=== PATIENT | female | born 1945 | race Caucasian/White ===

== ENCOUNTER → 2023-01-25 | Outpatient (CLI) | payer MEDICARE, OTHER | LOC: LAB 11:01 → LAB SHORT 11:01 | DX: N76.0 Acute vaginitis (principal) | CPT/HCPCS: 87086 ==

== ENCOUNTER → 2023-01-30 | Outpatient (CLI) | payer MEDICARE, OTHER | END | disposition home or self-care (01) | LOC: LAB SHORT 13:58 → LAB 13:58 | DX: R35.0 Frequency of micturition (principal); R30.0 Dysuria | CPT/HCPCS: 87086; 87147 ==

== ENCOUNTER 2023-05-07 09:05 | Day surgery (SDC) | payer MEDICARE, OTHER ==
[~2023-05-07] VITALS: Ht 160 cm; Wt 78.0 kg
[2023-05-07] VITALS (17 sets, daily range): BP systolic 144–176; BP diastolic 80–110
[~2023-05-07 09:05] MED LIST: SINEMET 25-1001 EAC1 PO
--- NOTE | 2023-05-07 09:40 | NUR ---
PT TO DAY SURGERY FOR COLONOSCOPY, DAUGHTER IN LAW AT BEDSIDE WITH PT AND WILL BE PTS RIDE HOME. PLAN OF CARE DISCUSSED, QUESTIONS ANSWERED.
--- NOTE | 2023-05-07 10:44 | NUR ---
05/07/23 1044 Randal Mac HISTORY, CHART, MEDICATIONS AND ALLERGIES REVIEWED BEFORE START OF PROCEDURE. PATIENT CONFIRMS NPO STATUS AND AGREES WITH SCHEDULED PROCEDURE. 3-LEAD EKG REVIEWED WITH PHYSICIAN PRIOR TO START OF PROCEDURE. MONITOR INTACT WITH CONTINUOUS PULSE OXIMETRY,CAPNOGRAPHY, 3-LEAD EKG, INTERMITTENT BP. SUPPLEMENTAL O2 TO BE TITRATED THROUGHOUT PROCEDURE TO MAINTAIN O2 SATURATION ABOVE 90%. PATIENT DETERMINED TO BE ASA APPROPRIATE FOR PROPOFOL SEDATION PRIOR TO START OF PROCEDURE BY DR. LIPSCOMB.
--- NOTE | 2023-05-07 11:58 | NUR ---
PATIENT UP TO AMBULATE TO BR, STEADY ON FEET. REPORTS MILD DIZZINESS WITH MOVEMENT. INSTRUCTED TO USE CAUTION WHILE AMBULATING AND GOING FROM A LYING/SITTING POSITION TO STANDING. Discharge instructions reviewed with patient. Patient verbalizes understanding. Copy given to patient to take home. Discharged via wheelchair to private car for ride home.
== END 2023-05-07 23:02 | disposition home or self-care (01) ==
LOC: ORSCMMR 09:05 → ORD 10:00 → ORSCMMR 10:00
PROVIDERS: Internal Medicine Gastroenterology
PROC: 0DBH8ZX Excision of Cecum, Via Natural or Artificial Opening Endoscopic, Diagnostic (ICD-10-PCS; principal; 2023-05-07 10:00)
DX: Z12.11 Encounter for screening for malignant neoplasm of colon (principal); Z86.010 Personal history of colon polyps; Z80.0 Family history of malignant neoplasm of digestive organs; D12.0 Benign neoplasm of cecum; K57.30 Diverticulosis of large intestine without perforation or abscess without bleeding; G20.A1 Parkinson's disease without dyskinesia, without mention of fluctuations; Z79.899 Other long term (current) drug therapy
CPT/HCPCS: 88305; J2704; J7120

== ENCOUNTER 2024-03-16 11:04 | Emergency (ER) | payer MEDICARE, OTHER ==
[~2024-03-16] VITALS: Ht 162.6 cm; Wt 70.8 kg
[2024-03-16 12:10] LABS: BASOPHILS ABSOLUTE AUTO 0.03 K/mm3 (0.00-0.23); BASOPHILS PERCENT AUTO 1 % (0-2); EOSINOPHILS ABSOLUTE AUTO 0.07 K/mm3 (0.00-0.68); EOSINOPHILS PERCENT AUTO 2 % (0-6); Hematocrit 39.4 % (33.0-51.0); IMMATURE GRAN ABSOLUTE AUTO 0.01 K/mm3 (0.00-0.10); IMMATURE GRAN PERCENT AUTO 0 % (0-1); LYMPHOCYTES ABSOLUTE AUTO 0.83 K/mm3 (0.84-5.20); LYMPHOCYTES PERCENT AUTO 20 % (21-46); MONOCYTES ABSOLUTE AUTO 0.46 K/mm3 (0.16-1.47); MONOCYTES PERCENT AUTO 11 % (4-13); Mean Corpuscular Volume 91 fL (80-100); Mean Platelet Volume 11.1 fL (9.1-12.4); NEUTROPHILS ABSOLUTE AUTO 2.82 K/mm3 (1.96-9.15); NEUTROPHILS PERCENT AUTO 67 % (41-73); Platelet Count 167 K/mm3 (150-400); RDW Coefficient Variation 13.1 % (11.7-14.2); RDW Standard Deviation 44.2 fL (35.1-46.3); Red Blood Cell Count 4.33 M/mm3 (3.80-5.20); White Blood Cell Count 4.22 K/mm3 (4.00-11.30)
[2024-03-16] MEDS ORDERED: Ketorolac Tromethamine 15mg Vial IV ONE (12:25)
[2024-03-16 12:28] LABS: Bun/Creatinine Ratio 24.3 (12.0-20.0); Calcium, Blood 8.9 mg/dL (8.5-10.1); Creatinine, Blood 0.7 mg/dL (0.40-1.00)
[2024-03-16 13:30] VITALS: BP 141/77
== END 2024-03-16 13:45 | disposition home or self-care (01) ==
LOC: ER 11:04
PROVIDERS: Emergency Medicine
DX: S09.90XA Unspecified injury of head, initial encounter (principal); H53.8 Other visual disturbances; W20.8XXA Other cause of strike by thrown, projected or falling object, initial encounter; G20.A1 Parkinson's disease without dyskinesia, without mention of fluctuations; Z88.0 Allergy status to penicillin; Z88.5 Allergy status to narcotic agent; Z79.899 Other long term (current) drug therapy
CPT/HCPCS: 70450; 80048; 85025; 96374; 99284-25; J1885

== ENCOUNTER 2024-05-06 10:35 | Inpatient (IN) | payer MEDICARE, OTHER ==
[~2024-05-06] VITALS: Ht 162.6 cm; Wt 51.1 kg
[2024-05-06 11:31] LABS: BASOPHILS ABSOLUTE AUTO 0.03 K/mm3 (0.00-0.23); BASOPHILS PERCENT AUTO 1 % (0-2); EOSINOPHILS PERCENT AUTO 2 % (0-6); Hematocrit 41.5 % (33.0-51.0); Hemoglobin 14.2 g/dL (11.5-16.0); IMMATURE GRAN ABSOLUTE AUTO 0.02 K/mm3 (0.00-0.10); IMMATURE GRAN PERCENT AUTO 0 % (0-1); LYMPHOCYTES PERCENT AUTO 12 % (21-46); MONOCYTES ABSOLUTE AUTO 0.68 K/mm3 (0.16-1.47); MONOCYTES PERCENT AUTO 14 % (4-13); Mean Corpuscular HGB Conc 34.2 g/dL (31.5-36.5); Mean Corpuscular Volume 91 fL (80-100); Mean Platelet Volume 11.8 fL (9.1-12.4); NEUTROPHILS ABSOLUTE AUTO 3.52 K/mm3 (1.96-9.15); NEUTROPHILS PERCENT AUTO 71 % (41-73); Platelet Count 191 K/mm3 (150-400); RDW Coefficient Variation 12.4 % (11.7-14.2); RDW Standard Deviation 41.2 fL (35.1-46.3); Red Blood Cell Count 4.58 M/mm3 (3.80-5.20); White Blood Cell Count 4.95 K/mm3 (4.00-11.30)
[2024-05-06 11:55] LABS: Albumin, Blood 3.6 g/dL (3.4-5.0); Albumin/Globulin Ratio 1.1 (0.8-1.8); Bilirubin, Total 0.5 mg/dL (0.1-1.0); Bun/Creatinine Ratio 23.3 (12.0-20.0); Calcium, Blood 9.4 mg/dL (8.5-10.1); Creatinine, Blood 0.69 mg/dL (0.40-1.00); Globulin, Blood 3.4 g/dL (2.2-4.0); Magnesium, Blood 2.2 mg/dL (1.6-2.4)
[2024-05-06 15:09] LABS: Source, Urine Clean Catch
[2024-05-06 15:13] LABS: Appearance, Urine Clear (Clear); Bilirubin, Urine Neg (Neg); Blood, Urine 1+ (Neg); Color, Urine Amber (P-Yellow); Glucose Qualitative, Urine Neg (Neg); Ketones, Urine 2+ (Neg); Leukocyte Esterase, Urine 1+ (Neg); Nitrite, Urine Pos (Neg); Protein, Urine 2+ (Neg); Urobilinogen, Urine 1+ (Normal)
[2024-05-06 15:32] LABS: Mucus Heavy (0-Heavy)
[2024-05-06 15:33] LABS: Bacteria Mod /hpf; Squamous Epithelial Cells Few /hpf (Few)
[2024-05-06] MEDS ORDERED: Cephalexin Monohydrate 500 MG Cap PO ONE (15:45)
[2024-05-06] MEDS ORDERED: CefTRIAXone Sodium 1,000 MG in NS 100 ML IV ONE (15:55)
[2024-05-06] MEDS ORDERED: FLU VACC TS2024-25(6MOS UP)/PF 45 MCG/0.5 ML SYRINGE IM SCH (16:20)
[2024-05-06] MEDS ORDERED: NS 1,000 ML IV SCH (16:20)
[2024-05-06] MEDS ORDERED: Ondansetron 4 MG TAB PO PRN (16:20)
[2024-05-06] MEDS ORDERED: Melatonin 3 MG Tab PO PRN (16:20)
[2024-05-06] MEDS ORDERED: Acetaminophen 325 MG TABLET PO PRN (16:20)
[2024-05-06] MEDS ORDERED: Levodopa/Carbidopa 100/25 MG Tab *CR PO SCH (17:00)
--- NOTE | 2024-05-06 18:19 | NUR ---
PT ARRIVED AT 1810 VIA CART. PT IS AOX2 WITH CONFUSION AND IS RINCON. PT WAS ABLE TO REQUEST NEED FOR RESTROOM AND USED CAN WITH A ONE PERSON ASSIST INTO RESTROOM. PT SETTLED INTO BED AND ORIENTED TO CALL LIGHT AND BED ALARM IS IN PLACE. NO DISTRESS IS NOTED WILL CONTINUE TO MONITOR.
[2024-05-06 18:20] VITALS: BP 127/77
[2024-05-06] MEDS ORDERED: Sennosides 8.6 MG Tab PO SCH (21:00)
[2024-05-06] MEDS ORDERED: OLANZapine 10 MG Vial IM ONE (23:35)
--- NOTE | 2024-05-07 04:27 | NUR ---
SHIFT SUMMARY ADMITTED FOR UTI/AMS. FULL CODE. IV ANTIB RX ARE SCHEDULED. IV FLUIDS WERE INFUSING. PT BECAME SEVERELY AGITATED THE SHIFT PROGRESSED. SHE PULLED OUT HER IV, BECAME AGRESSIVE TOWARDS STAFF (ATTEMPTING BITING, KICKING, PULLING HAIR, HITTING), AND REFUSED TO BE REDIRECTED. SHE EXITED HER BED AND WAS INTENT ON SHUTTING HERSELF IN THE BATHROOM ALONE. I DID INFORM THE HOSPITALIST AND NEW ORDERS WERE ENTERED. SHE IS CONFUSED AND HALLUCINATING, YELLING OUT. ANXIETY MEDICATION GIVEN WITH LITTLE EFFECT. PALLIATIVE CARE IS CONSULTED. HX OF PARKINSONS. SHE IS SEVERELY KEWEENAW. ON RA. REGULAR DIET.
[2024-05-07 07:33] LABS: BASOPHILS ABSOLUTE AUTO 0.03 K/mm3 (0.00-0.23); BASOPHILS PERCENT AUTO 1 % (0-2); EOSINOPHILS ABSOLUTE AUTO 0.04 K/mm3 (0.00-0.68); EOSINOPHILS PERCENT AUTO 1 % (0-6); Hematocrit 41.8 % (33.0-51.0); Hemoglobin 14.5 g/dL (11.5-16.0); IMMATURE GRAN ABSOLUTE AUTO 0.06 K/mm3 (0.00-0.10); IMMATURE GRAN PERCENT AUTO 1 % (0-1); LYMPHOCYTES ABSOLUTE AUTO 0.69 K/mm3 (0.84-5.20); LYMPHOCYTES PERCENT AUTO 11 % (21-46); MONOCYTES ABSOLUTE AUTO 0.96 K/mm3 (0.16-1.47); MONOCYTES PERCENT AUTO 16 % (4-13); Mean Corpuscular HGB 30.9 pg (26.0-34.0); Mean Corpuscular HGB Conc 34.7 g/dL (31.5-36.5); Mean Corpuscular Volume 89 fL (80-100); NEUTROPHILS ABSOLUTE AUTO 4.31 K/mm3 (1.96-9.15); NEUTROPHILS PERCENT AUTO 71 % (41-73); Platelet Count 154 K/mm3 (150-400); RDW Coefficient Variation 12.3 % (11.7-14.2); RDW Standard Deviation 40.5 fL (35.1-46.3); White Blood Cell Count 6.09 K/mm3 (4.00-11.30)
[2024-05-07 07:47] VITALS: BP 178/110
[2024-05-07 08:26] LABS: Bun/Creatinine Ratio 23.4 (12.0-20.0); Creatinine, Blood 0.64 mg/dL (0.40-1.00); Potassium, Blood 3.7 mmol/L (3.5-5.5)
[2024-05-07] MEDS ORDERED: CefTRIAXone Sodium 1,000 MG in NS 100 ML IV SCH (09:00)
[2024-05-07] MEDS ORDERED: Enoxaparin 40 MG/0.4 ML SYR SC SCH (09:00)
[2024-05-07 09:27] VITALS: BP 107/93
[2024-05-07] MEDS ORDERED: CARBIDOPA-LEVO1 EA15 PO (13:47)
[2024-05-07] MEDS ORDERED: [UNRECOGNIZED DRUG - CODE] PO ×2 (13:49→15:47)
[2024-05-07] MEDS ORDERED: B-12500 MC2 PO (13:51)
[2024-05-07] MEDS ORDERED: VITAMIN D31000 UNI1 PO (13:53)
[2024-05-07] MEDS ORDERED: QUEtiapine Fumarate 25 MG Tab PO PRN (15:00)
[2024-05-07] MEDS ORDERED: QUEtiapine Fumarate 25 MG Tab PO ONE (15:00)
[2024-05-07] MEDS ORDERED: CARBIDOPA-LEVO1 EA17 PO (15:45)
--- NOTE | 2024-05-07 16:15 | NUR ---
PATIENT IS A/O X 1 PATIENT IS AL[place]AC[place] AND IS DIFFICULT TO UNDERSTAND WHEN TALKING. PATIENT HAS HAD INCREASED CONFUSION. PATIENT RESTRAINTS WERE D/C AND SITTER WAS ADDED DUE TO PATIENT TRYING TO GET OUT OF BED. IV RESTARTED IN RIGHT WRIST WITH A 22G CATH. IV FLUIDS NS INFUSION AT 100/HR. PATIENT FAMILY HAS BEEN WITH PATIENT MOST OF THE DAY AND GAVE THIS NURSE A LIST OF PATIENT HOME MEDICATIONS AND MED REC WAS COMPLETED. DR. DOYLE WAS CONTACTED AND ADVISED OF MED REC. NEW MEDICATION SEROQUEL WAS ADDED TO PATIENT MEDS LIST ASSIST WITH PATIENT AGITATION AND CONSTANT TRYING TO GET OUT OF BED. PATIENT HAS BEEN DIFFICULT TO REDIRECT.
[2024-05-07 19:45] VITALS: BP 141/87
[2024-05-07] MEDS ORDERED: Lactobacil 2-S.Thermo-Bifido 1 1 Cap PO SCH (21:00)
[2024-05-07] MEDS ORDERED: Peg 400/Hypromellose/Glycerin 15 DROP/ML BTL BOTHEYES SCH (21:00)
[2024-05-08 05:01] VITALS: BP 140/78
--- NOTE | 2024-05-08 06:17 | NUR ---
SHIFT SUMMARY PT IS ALERT AND ORIENTED TIMES 1-2. PT IS FULL CODE. PT HAS FAMILY AT BEDSIDE. PT UNABLE TO BE AWAKEN FOR HS MEDICATION. DAUGHTER TRIED ASSISTING BUT BASED ON PRIOR NURSE REPORT THE PT APPEARED TO BE EXHAUSTED AND WAS GIVEN SEROQUEL, WHICH SHE HAD NOT HAD BEFORE. ALSO REPORTED PT DID NOT SLEEP THE NIGHT BEFORE. BED IN LOW POSITION, RAILS TIMES 2, CALL LIGHT WITHIN REACH.
[2024-05-08 07:52] VITALS: BP 146/93
[2024-05-08] MEDS ORDERED: Artificial Tear Opth Oint 3.5 GM BOTHEYES SCH (08:00)
--- NOTE | 2024-05-08 12:20 | NUR ---
PATIENT FAMILY REQUESTED TO SEE DR SANDRA TO DICUSS CT RESULTS WELL STATUS OF PATIENT. DR SANDRA CONTACTED AND ADVISED OF FAMILY REQUEST.
[2024-05-08 16:39] VITALS: BP 117/71
--- NOTE | 2024-05-08 17:34 | NUR ---
PATIENT A/O X 1 HOWEVER DOES RECOGINZED FAMILY AT TIMES. PATIENT RECIEVED HER HEARING AIDS FROM HER FAMILY AND IS ABLE TO HEAR WITH THEM IN. PATIENT FAMILY HAS BEEN IN ROOM WITH PATIENT TODAY AND SPOKE TO THIS NURSE REGARDING DISCHARGING HOME WITH HER SPOUSE. PATIENT FAMILY FEELS HE IS UNABLE TO CARE FOR HER. PATIENT FAMILY WAS ADVISED THAT PATIENT DID NOT QUALIFY FOR SNF HOWEVER WAS GIVEN RESOURCE BOOK TO LOOK FOR POSSIBLE IN HOME CAREGIVING. FAMILY TO MEET WITH [facility] TOMORROW TO DISCUSS DME FOR HOME.
[2024-05-08] MEDS ORDERED: QUEtiapine Fumarate 25 MG Tab PO PRN (18:55)
[2024-05-08 19:16] VITALS: BP 108/74
[2024-05-09 03:46] VITALS: BP 132/72
--- NOTE | 2024-05-09 05:36 | NUR ---
SHIFT SUMMARY PT IS ALERT AND ORIENTED TIMES 1-2. PT IS FULL CODE. PT HAS FAMILY AT BEDSIDE. PER DAY NURSE REPORT, HAD A GOOD DAY, WAS VOCAL AND CARRIED CONVERSATIONS WITH FAMILLY. PT ATE DINNER AND SOME ICECREAM FOR DESSERT. PT ALSO TOOK ALL OF HER HS MEDICATION. PT APPEARED TO SLEEP THROUGH THE NIGHT NOT NEEDING PRN SEROQUEL. BED IN LOW POSITION, RAILS TIMES 2, CALL LIGHT WITHIN REACH.
--- NOTE | 2024-05-09 09:42 | NUR ---
THIS RN IN WITH PT THIS MORNING FOR ASSESSMENT. PT SBA WITH CANE FROM BED TO BATHROOM AND THEN TO CHAIR. NO HANDS ON ASSISTANCE NEEDED. PT UP TO CHAIR FOR BREAKFAST AND WAS ABLE TO FEED SELF WITHOUT ASSISTANCE. PT IS PLEASANT AND COOPERATIVE. FAMILY AT BEDSIDE
[2024-05-09] MEDS ORDERED: Levodopa/Carbidopa 100 / 25 MG Tab PO SCH (13:00)
--- NOTE | 2024-05-09 18:46 | NUR ---
PT IS ALERT AND ORIENTED X2, SHE HAS SHOWN MUCH IMPROVEMENT IN CONGNITION AND COMMUNICATION, ANSWERS RELEVENT QUESTIONS SUCH "ARE YOU HUNGRY", DO YOU NEED TO GO TO THE BATHROOM". PT TOOK SHOWER INDEPENDENTLY WITH SBA FOR FALL RISK. OBEYS COMMANDS-IF SHE CAN HEAR. HEARING AIDS WITH PT. PT FAMILY WILL STAY TONIGHT
[2024-05-09 19:40] VITALS: BP 131/85
[2024-05-09] MEDS ORDERED: Levodopa/Carbidopa 100/25 MG Tab *CR PO SCH (21:00)
[2024-05-09] MEDS ORDERED: Rivastigmine Tartrate 1.5 MG Cap PO SCH (21:00)
--- NOTE | 2024-05-10 06:10 | NUR ---
SHIFT SUMMARY PT ALERT TO SELF AND PLEASANT. NO C/O PAIN. PT WAS WILLING TO TAKE A COUPLE SCHEDULED NIGHT TIME MEDICATOINS BUT BECAME SUSPISIOUS OF MEDS AND COULD NOT BE REASURED OF THEIR PURPOSE AND TREATMENT GOAL. SON IN ROOM T/O NIGHT AND ALSO ATTMPTED TO GET PT TO TAKE ALL EVEING MEDS WITHOUT SUCCESS. NO ACUTE CHANGES OVERNIGHT. PT DID HAVE A HARD TIME FALLING ASLEEP FOR A FOR THE NIGHT. VSS. BED IN LOWEST POSITION AND CALL LIGHT IN REACH.
[2024-05-10 06:48] VITALS: BP 138/86
[2024-05-10 15:25] VITALS: BP 122/79
--- NOTE | 2024-05-10 18:15 | NUR ---
SHIFT SUMMARY PATIENT ABLE TO AMBULATE IN ROOM WITH FAMILY ASSISTANCE. DECLINED LOVENOX THIS SHIFT, WILLING BUT HESITANT TO TAKE OTHER MEDICATIONS. FAMILY PRESENT IN ROOM THROUGHOUT SHIFT, MAKING ARRANGEMENTS FOR DISCHARGE HOME AND STATED SHE CONTACTED SENIOR SERVICES. PATIENT A/O X 2-3, HARD OF HEARING. SKIN IN GOOD CONDITION. ABLE TO MAKE NEEDS KNOWN SOMETIMES. CALL LIGHT IN REACH, CARES ONGOING.
[2024-05-10 19:25] VITALS: BP 111/76
--- NOTE | 2024-05-11 05:12 | NUR ---
SHIFT SUMMARY PT ALERT TO SELF. PT MORE CONFUSED THIS EVENING STATING SHE HEARD BUZZING SOUNDS. PT DETERMINED TO FIND THE SOURCE BY WONDERING ANGEL AND WAS CONCERED ABOUT FINDING SOMEONE TO "FIX THE PROBLEM". SOME NONSENSICAL SPEACH AT TIMES. FAMILY STATED PT VERBALIZED FEAR THAT SOMEONE WAS GOING TO SHOOT HER AND WAS FINALLY ABLE TO REST AROUND 2300 WHEN FAMILY ASSURED PT THEY WOULD STAY AWAKE TO WATCH OVER PT. MEDICATED WITH SEROQUEL WITH LITTLE EFFECT. PT UP AROUND 0100 AND WALKED ANGEL WITH STAFF FOR ABOUT ON HOUR. PT HAD SOME HALLUCIATIONS, STATING SHE SAW LIZARDS AND MEN IN HER ROOM. SLEPT VERY LITTLE DURING THE NIGHT. SON AT BEDSIDE T/O NIGHT. VSS. BED IN LOWEST POSITION AND CALL LIGHT IN REACH.
[2024-05-11] MEDS ORDERED: MELA3 PO (11:43)
[2024-05-11] MEDS ORDERED: ARTIFICIAL TEAR15 M6 BOTHEYES (11:44)
[2024-05-11] MEDS ORDERED: SEROQUEL25 MG PO (11:47)
[2024-05-11] MEDS ORDERED: [UNRECOGNIZED DRUG - OTHER] BOTHEYES (11:49)
[2024-05-11] MEDS ORDERED: MIRALAX17 GM PO (11:52)
--- NOTE | 2024-05-11 14:08 | NUR ---
DISCHARGE SUMMARY PATIENT DISCHARGED THIS SHIFT WITH DAUGHTER TO DRIVE HER HOME. HOME HEALTH SET UP, CM ORDERED DME. DISCHARGE PACKET GIVEN AND REVIEWED, QUESTIONS ANSWERED, DAUGHTER AND VERBALIZED UNDERSTANDING. IV REMOVED PRIOR WITHOUT COMPLICATION. SKIN INTACT ON DISCHARGE. EYE DROPS AND BARRIER CREAM SENT WITH PATIENT.
== END 2024-05-11 14:12 | disposition home health service (06) | DRG 56 ==
LOC: ER 10:35 → MEDS 17:57
PROVIDERS: Physician Assistant; ADMIT Internal Medicine
DX: G20.A1 Parkinson's disease without dyskinesia, without mention of fluctuations (principal); G93.41 Metabolic encephalopathy; E44.0 Moderate protein-calorie malnutrition; R64 Cachexia; F03.911 Unspecified dementia, unspecified severity, with agitation; F02.80 Dementia in other diseases classified elsewhere, unspecified severity, without behavioral disturbance, psychotic disturbance, mood disturbance, and anxiety; G31.83 Neurocognitive disorder with Lewy bodies; E86.0 Dehydration; H91.90 Unspecified hearing loss, unspecified ear; H91.10 Presbycusis, unspecified ear; Z88.5 Allergy status to narcotic agent; Z88.0 Allergy status to penicillin; Z79.899 Other long term (current) drug therapy; Z90.710 Acquired absence of both cervix and uterus; Z98.890 Other specified postprocedural states; Z68.26 Body mass index [BMI] 26.0-26.9, adult
CPT/HCPCS: 36415; 51701; 70450; 71046; 80048; 80053; 81001; 82947; 83735; 85025; 87086; 96374; 97161; 99285-25; A9270; J0696; J1650; J7030

== ENCOUNTER → 2024-07-19 | Outpatient (CLI) | payer MEDICARE, OTHER ==
[~2024-07-19] MED LIST changes: +ARTIFICIAL TEAR15 M6 BOTHEYES; +B-12500 MC2 PO; +CARBIDOPA-LEVO1 EA15 PO; +CARBIDOPA-LEVO1 EA17 PO; +MELA3 PO; +MIRALAX17 GM PO; +SEROQUEL25 MG PO; -SINEMET 25-1001 EAC1 PO; +VITAMIN D31000 UNI1 PO; +[UNRECOGNIZED DRUG - CODE] PO; +[UNRECOGNIZED DRUG - OTHER] BOTHEYES
== END | disposition home or self-care (01) ==
LOC: LAB SHORT 11:20 → LAB 11:20
DX: N39.0 Urinary tract infection, site not specified (principal)
CPT/HCPCS: 87077; 87086; 87186

== ENCOUNTER → 2024-08-18 | Outpatient (CLI) | payer MEDICARE, OTHER ==
[2024-08-18 13:19] LABS: Source, Urine Clean Catch
[2024-08-18 14:41] LABS: Appearance, Urine Cloudy (Clear); Bilirubin, Urine Neg (Neg); Blood, Urine Neg (Neg); Color, Urine Yellow (P-Yellow); Glucose Qualitative, Urine Neg (Neg); Ketones, Urine 1+ (Neg); Leukocyte Esterase, Urine Neg (Neg); Nitrite, Urine Neg (Neg); Protein, Urine 1+ (Neg); Specific Gravity, Urine 1.025 (1.003-1.022); Urobilinogen, Urine NORM (Normal)
[2024-08-18 15:39] LABS: Calcium Oxalate Crystals Mod /hpf
[2024-08-18 15:40] LABS: Amorphous Mod (0-Heavy)
[2024-08-18 15:41] LABS: Bacteria Few /hpf; Red Blood Cells, Urine 0-2 /hpf (0-2); Squamous Epithelial Cells Few /hpf (Few); White Blood Cells, Urine 0-2 /hpf (0-5)
== END ==
LOC: LAB SHORT 13:17 → LAB 13:17
PROVIDERS: Student in an Organized Health Care Education/Training Program
DX: R41.0 Disorientation, unspecified (principal)
CPT/HCPCS: 81001

== ENCOUNTER 2024-12-28 18:58 | Emergency (ER) | payer MEDICARE, OTHER ==
[~2024-12-28] VITALS: Ht 154.9 cm; Wt 59.9 kg
[2024-12-28 19:39] LABS: BASOPHILS ABSOLUTE AUTO 0.04 K/mm3 (0.00-0.23); BASOPHILS PERCENT AUTO 1 % (0-2); EOSINOPHILS ABSOLUTE AUTO 0.11 K/mm3 (0.00-0.68); EOSINOPHILS PERCENT AUTO 3 % (0-6); Hematocrit 37.1 % (33.0-51.0); Hemoglobin 11.8 g/dL (11.5-16.0); IMMATURE GRAN ABSOLUTE AUTO 0.01 K/mm3 (0.00-0.10); IMMATURE GRAN PERCENT AUTO 0 % (0-1); LYMPHOCYTES ABSOLUTE AUTO 1.23 K/mm3 (0.84-5.20); LYMPHOCYTES PERCENT AUTO 29 % (21-46); MONOCYTES ABSOLUTE AUTO 0.71 K/mm3 (0.16-1.47); MONOCYTES PERCENT AUTO 17 % (4-13); Mean Corpuscular HGB Conc 31.8 g/dL (31.5-36.5); Mean Corpuscular Volume 94 fL (80-100); NEUTROPHILS ABSOLUTE AUTO 2.15 K/mm3 (1.96-9.15); NEUTROPHILS PERCENT AUTO 51 % (41-73); NRBC ABSOLUTE 0.00 K/mm3 (0.00-0.02); NRBC Auto 0.0 /100 WBC (0.0-0.2); Platelet Count 175 K/mm3 (150-400); RDW Coefficient Variation 13.2 % (11.7-14.2); RDW Standard Deviation 46.1 fL (35.1-46.3)
[2024-12-28 19:47] LABS: Source, Urine Straight Cath
[2024-12-28 20:02] LABS: Alanine Aminotransfer (ALT/SGP 9.0 U/L (12-78); Albumin, Blood 3.4 g/dL (3.4-5.0); Albumin/Globulin Ratio 1.1 (0.8-1.8); Anion Gap 4.0 mmol/L (3-11); Aspartate Aminotrans (AST/SGOT 10.0 U/L (12-37); Bilirubin, Total 0.6 mg/dL (0.1-1.0); Blood Urea Nitrogen 29.0 mg/dL (8-24); CO2, Blood 32.0 mmol/L (21-32); Calcium, Blood 9.1 mg/dL (8.5-10.1); Chloride, Blood 109.0 mmol/L (98-108); Creatinine, Blood 0.63 mg/dL (0.40-1.00); Globulin, Blood 3.1 g/dL (2.2-4.0); Glucose, Blood 118.0 mg/dL (70-99); Potassium, Blood 3.9 mmol/L (3.5-5.5); Sodium, Blood 141.0 mmol/L (136-145); Total Protein, Blood 6.5 g/dL (6.4-8.2)
[2024-12-28 20:06] LABS: Bilirubin, Urine Neg (Neg); Color, Urine Yellow (P-Yellow); Glucose Qualitative, Urine Neg (Neg); Ketones, Urine 1+ (Neg); Leukocyte Esterase, Urine 1+ (Neg); Protein, Urine 2+ (Neg); Specific Gravity, Urine 1.030 (1.003-1.022); Urobilinogen, Urine 1+ (Normal)
[2024-12-28 20:18] LABS: Magnesium, Blood 1.9 mg/dL (1.6-2.4); Phosphorus, Blood 3.6 mg/dL (2.5-4.9)
[2024-12-28 20:20] LABS: Red Blood Cells, Urine 0-2 /hpf (0-2); White Blood Cells, Urine 0-2 /hpf (0-5)
[2024-12-29] MEDS ORDERED: Levodopa/Carbidopa 100 / 25 MG Tab PO SCH (01:55)
[2024-12-29 07:55] VITALS: BP 149/99
== END 2024-12-29 10:53 | disposition home or self-care (01) ==
LOC: ER 18:58
PROVIDERS: Student in an Organized Health Care Education/Training Program
DX: R53.1 Weakness (principal); Z79.899 Other long term (current) drug therapy; Z88.5 Allergy status to narcotic agent; Z88.0 Allergy status to penicillin
CPT/HCPCS: 70450; 71046; 80053; 81001; 83690; 83735; 83880; 84100; 84484; 85025; 87086; 93005; 93010; 99285-25; A9270; P9612

== ENCOUNTER → 2025-04-09 | Outpatient (CLI) | payer MEDICARE ==
[2025-04-09 17:40] LABS: Source, Urine Clean Catch
[2025-04-09 18:56] LABS: Bilirubin, Urine Neg (Neg); Color, Urine Yellow (P-Yellow); Glucose Qualitative, Urine Neg (Neg); Ketones, Urine 2+ (Neg); Leukocyte Esterase, Urine 1+ (Neg); Protein, Urine 1+ (Neg); Specific Gravity, Urine 1.030 (1.003-1.022); Urobilinogen, Urine NORM (Normal)
[2025-04-09 19:07] LABS: Red Blood Cells, Urine 0-2 /hpf (0-2)
== END ==
LOC: LAB SHORT 17:39 → LAB 17:39
PROVIDERS: Student in an Organized Health Care Education/Training Program
DX: R35.0 Frequency of micturition (principal)
CPT/HCPCS: 81001; 87086

== ENCOUNTER 2025-05-15 16:03 | Emergency (ER) | payer MEDICARE, OTHER ==
[~2025-05-15] VITALS: Ht 167.6 cm; Wt 68.0 kg
[2025-05-15 16:34] LABS: BASOPHILS ABSOLUTE AUTO 0.03 K/mm3 (0.00-0.23); BASOPHILS PERCENT AUTO 1 % (0-2); EOSINOPHILS ABSOLUTE AUTO 0.04 K/mm3 (0.00-0.68); EOSINOPHILS PERCENT AUTO 1 % (0-6); Hematocrit 39.1 % (33.0-51.0); Hemoglobin 12.6 g/dL (11.5-16.0); IMMATURE GRAN ABSOLUTE AUTO 0.01 K/mm3 (0.00-0.10); IMMATURE GRAN PERCENT AUTO 0 % (0-1); LYMPHOCYTES ABSOLUTE AUTO 0.95 K/mm3 (0.84-5.20); LYMPHOCYTES PERCENT AUTO 24 % (21-46); MONOCYTES ABSOLUTE AUTO 0.45 K/mm3 (0.16-1.47); MONOCYTES PERCENT AUTO 12 % (4-13); Mean Corpuscular HGB Conc 32.2 g/dL (31.5-36.5); Mean Corpuscular Volume 94 fL (80-100); NEUTROPHILS ABSOLUTE AUTO 2.41 K/mm3 (1.96-9.15); NEUTROPHILS PERCENT AUTO 62 % (41-73); NRBC ABSOLUTE 0.00 K/mm3 (0.00-0.02); NRBC Auto 0.0 /100 WBC (0.0-0.2); Platelet Count 153 K/mm3 (150-400); RDW Coefficient Variation 12.9 % (11.7-14.2); RDW Standard Deviation 45.0 fL (35.1-46.3)
[2025-05-15 16:57] LABS: Source, Urine Straight Cath
[2025-05-15 17:05] LABS: Alanine Aminotransfer (ALT/SGP 9.0 U/L (12-78); Albumin, Blood 3.7 g/dL (3.4-5.0); Albumin/Globulin Ratio 1.2 (0.8-1.8); Anion Gap 8.0 mmol/L (3-11); Aspartate Aminotrans (AST/SGOT 20.0 U/L (12-37); Bilirubin, Total 0.9 mg/dL (0.1-1.0); Blood Urea Nitrogen 19.0 mg/dL (8-24); CO2, Blood 28.0 mmol/L (21-32); Calcium, Blood 9.1 mg/dL (8.5-10.1); Chloride, Blood 109.0 mmol/L (98-108); Creatinine, Blood 0.56 mg/dL (0.40-1.00); Globulin, Blood 3.0 g/dL (2.2-4.0); Glucose, Blood 85.0 mg/dL (70-99); Potassium, Blood 3.7 mmol/L (3.5-5.5); Sodium, Blood 141.0 mmol/L (136-145); Total Protein, Blood 6.7 g/dL (6.4-8.2)
[2025-05-15 17:13] LABS: Thyroid Stimulating Hormone 2.08 uIU/mL (0.360-4.800)
[2025-05-15 17:23] LABS: Bilirubin, Urine Neg (Neg); Color, Urine Yellow (P-Yellow); Glucose Qualitative, Urine Neg (Neg); Ketones, Urine 3+ (Neg); Leukocyte Esterase, Urine Neg (Neg); Protein, Urine Neg (Neg); Specific Gravity, Urine 1.015 (1.003-1.022); Urobilinogen, Urine NORM (Normal)
[2025-05-15 18:00] VITALS: BP 141/75
== END 2025-05-15 18:15 | disposition home or self-care (01) ==
LOC: ER 16:03
PROVIDERS: Emergency Medicine
DX: E86.0 Dehydration (principal); Z88.0 Allergy status to penicillin; Z88.5 Allergy status to narcotic agent
CPT/HCPCS: 70450; 71045; 80053; 81003; 84439; 84443; 85025; 93005; 93010; 96360; 99285-25; J7120; P9612

== ENCOUNTER 2025-06-13 15:04 | Emergency (ER) | payer MEDICARE, OTHER ==
[~2025-06-13] VITALS: Ht 157.5 cm; Wt 63.5 kg
[2025-06-13 15:18] LABS: BASOPHILS ABSOLUTE AUTO 0.03 K/mm3 (0.00-0.23); BASOPHILS PERCENT AUTO 1 % (0-2); EOSINOPHILS ABSOLUTE AUTO 0.03 K/mm3 (0.00-0.68); EOSINOPHILS PERCENT AUTO 1 % (0-6); Hematocrit 38.7 % (33.0-51.0); Hemoglobin 12.6 g/dL (11.5-16.0); IMMATURE GRAN ABSOLUTE AUTO 0.01 K/mm3 (0.00-0.10); IMMATURE GRAN PERCENT AUTO 0 % (0-1); LYMPHOCYTES ABSOLUTE AUTO 1.04 K/mm3 (0.84-5.20); LYMPHOCYTES PERCENT AUTO 30 % (21-46); MONOCYTES ABSOLUTE AUTO 0.49 K/mm3 (0.16-1.47); MONOCYTES PERCENT AUTO 14 % (4-13); Mean Corpuscular HGB Conc 32.6 g/dL (31.5-36.5); Mean Corpuscular Volume 93 fL (80-100); NEUTROPHILS ABSOLUTE AUTO 1.92 K/mm3 (1.96-9.15); NEUTROPHILS PERCENT AUTO 55 % (41-73); NRBC ABSOLUTE 0.00 K/mm3 (0.00-0.02); NRBC Auto 0.0 /100 WBC (0.0-0.2); Platelet Count 177 K/mm3 (150-400); RDW Coefficient Variation 13.2 % (11.7-14.2); RDW Standard Deviation 44.7 fL (35.1-46.3)
[2025-06-13 15:40] LABS: Alanine Aminotransfer (ALT/SGP 11 U/L (12-78); Albumin, Blood 3.9 g/dL (3.4-5.0); Albumin/Globulin Ratio 1.3 (0.8-1.8); Anion Gap 5 mmol/L (3-11); Aspartate Aminotrans (AST/SGOT 18 U/L (12-37); Bilirubin, Total 0.5 mg/dL (0.1-1.0); Blood Urea Nitrogen 23 mg/dL (8-24); CO2, Blood 33 mmol/L (21-32); Calcium, Blood 9.7 mg/dL (8.5-10.1); Chloride, Blood 107 mmol/L (98-108); Creatinine, Blood 0.65 mg/dL (0.40-1.00); Ethanol (Alcohol), Blood, Med <3 mg/dL; Globulin, Blood 3.1 g/dL (2.2-4.0); Glucose, Blood 108 mg/dL (70-99); Potassium, Blood 4.1 mmol/L (3.5-5.5); Sodium, Blood 141 mmol/L (136-145); Total Protein, Blood 7.0 g/dL (6.4-8.2)
[2025-06-13] MEDS ORDERED: ERGO50000 PO (15:58)
[2025-06-13] MEDS ORDERED: ONDA4ODT MM (15:58)
[2025-06-13] MEDS ORDERED: MIRT15 PO (15:58)
[2025-06-13 16:05] LABS: U Amphetamine Screen Not Detected; U Barbiturate Screen Not Detected; U Benzodiazapine Screen Not Detected; U Buprenorphine Screen Not Detected; U Cannabinoids Screen Not Detected; U Cocaine Screen Not Detected; U Methadone Screen Not Detected; U Methamphetamine Screen Not Detected; U Opiates Screen Not Detected; U Oxycodone Screen Not Detected; U Phencyclidine Screen Not Detected
[2025-06-13 16:31] LABS: pH Blood Venous 7.40 (7.34-7.37)
[2025-06-13 17:15] VITALS: BP 136/100
[2025-06-15 06:45] LABS: Calcium, Ionized (POC) 1.25 mmol/L (1.10-1.46); Chloride (POC) 105 mmol/L (98-108); Creatinine (POC) 0.7 mg/dL (0.6-1.0); Glucose (ISTAT POC) 104 mg/dL (70-99); Hematocrit (POC) 39.0 % (36.0-46.0); Hemoglobin (POC) 13.3 g/dL (12.0-16.0); Potassium (POC) 4.8 mmol/L (3.5-5.5); Sodium (POC) 144 mmol/L (135-148); Total CO2 (POC) 27 mmol/L (21-32)
== END 2025-06-13 18:58 | disposition home or self-care (01) ==
LOC: ER 15:04
PROVIDERS: Emergency Medicine
DX: R40.4 Transient alteration of awareness (principal); G20.A1 Parkinson's disease without dyskinesia, without mention of fluctuations; Z86.73 Personal history of transient ischemic attack (TIA), and cerebral infarction without residual deficits; F02.80 Dementia in other diseases classified elsewhere, unspecified severity, without behavioral disturbance, psychotic disturbance, mood disturbance, and anxiety; Z88.5 Allergy status to narcotic agent; Z88.0 Allergy status to penicillin; Z79.899 Other long term (current) drug therapy
CPT/HCPCS: 51702; 70450; 70496; 70498; 71045; 80047; 80053; 80320; 82375; 82803; 82947; 85014; 85025; 93005; 93010; 99285-25; Q9967